=== PATIENT | male | born 1955 | race Caucasian/White ===

== ENCOUNTER 2019-05-12 15:12 | Emergency (ER) | payer MEDICARE, OTHER, SELFPAY ==
[2019-05-12 15:14] VITALS: BP 114/74; PULSE 124; RESP 18; TEMP 36.2; O2SAT 96; BMI 21.9
--- NOTE | 2019-05-12 15:52 | ED.DCSUM_ITS ---
History of Present Illness Chief Complaint: Rash Informant: Patient, Significant Other Location: Left Eye Onset: Yesterday Context: Sudden Onset Timing: Continuous Current Severity: Moderate Maximum Severity: Severe Worsened by: Light and rubbing Relieved by: Nothing Associated Symptoms - Eyes: Foreign body sensation, Photophobia, Redness, - - All other associated symptoms were negative. Unable to\because T-sheet has not been completed. History of injury: Uncertain, Welding injury, - - And grinding yesterday Visual correction: None Narrative: Patient presents with rash which he and Dr. Stringer believe is secondary to chemotherapy. He also complains of eye pain with photophobia redness. Pain started after he was welding and grinding. There is no history of metal pounding on metal. He denies double vision, loss of vision. Prior similar symptoms: No Recent Illness/Hospitalization: No Past Medical History - Allergies and Home Meds Allergies/Adverse Reactions: Allergies Penicillins Allergy (Verified 05/12/19 15:16) Hives Primary Care Physician: Care Physician,No Primary [NON-STAFF] - Lives: Spouse/ Significant Other Smoking Status: Former smoker Alcohol: None Drugs: None Review of Systems General: Denies: Chills, Fever Eyes: Reports: - - Photophobia. Denies: Visual changes - bilaterally, Blurred Vision - bilaterally, Diplopia ENT: Denies: Bilateral ear pain, Rhinorrhea, Sore throat Gastrointestinal: Reports: Nausea, Vomiting Genitourinary: Denies: Dysuria, Hematuria, Frequency Musculoskeletal: Denies: Myalgias, Arthralgias, Back pain, Swelling, Extremity Pain Skin: Reports: Rash. Denies: Abscess, Wounds Hematologic: Reports: Easy bruising. Denies: Easy bleeding Allergy: Denies: Uticaria, Swelling of the mouth, Swelling of the tongue Physical Exam Eyelid: Normal inspection, Right eyelid everted, Left eyelid everted, No foreign body, - - All other findings are negative. Right Conjunctiva/Sclera: Normal inspection, No foreign body, No erythema Left Conjunctiva/Sclera: - - Metallic foreign body with rust ring noted using ophthalmoscope at 7:00 3 to 4 mm from the limbal border. 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 Right Cornea: Normal inspection, No foreign body, No abrasion Left Cornea: Foreign body Extraocular Motion: Normal exam, No pain, No palsy, No nystagmus Pupils: Normal accomodation, PERRL Right pupil size in mm: 3 Left pupil size in mm: 3 Anterior chamber: Normal exam, Deep and quiet Vital Signs/Narrative: Vital Signs Temp Pulse Resp BP Pulse Ox 05/12/19 15:14 97.1 F L 124 H 18 114/74 96 Inital Vital Signs reviewed: Yes General: Well nourished, Well developed Head: Normocephalic, Atraumatic ENT: Moist mucous membranes, No rhinorrhea Neck: Supple, Nontender Cardiovascular: Regular rate, Regular rhythm Respiratory: No distress Skin: Normal color, Rash - Erythematous slightly raised nonblanching rash noted to torso, upper extremities. There is bruising noted. There is also dry skin noted. There is no cervical, supraclavicular lymphadenopathy. Neurological: Alert, Oriented x3, Cranial nerves II-XII grossly intact, Normal Strength, Normal Sensation Psychological: Normal affect Diagnostic/Tx/Re-eval - Treatment and Re-Evaluation Foreign body removal: Eye dione Residual rust ring: No Removed with eye dione: Yes Tetracaine: left eye Antibiotic: left eye - Medical Decision Making Patient has metallic foreign body with rust ring. Slit lamp was nonfunctional. The foreign body was removed with bur without use of slit-lamp. There is a larger defect in his desirable. He was treated with ophthalmic antibiotics. Since pharmacies are closed he received a dose here in vial was dispensed. Regarding rash contacted Dr. Dk Stringer his oncologist. This is a photosensitivity reaction to the chemotherapy is on. He was instructed to apply steroid cream to the rash and apply sunscreen 30 or higher. ED Disposition - Plan for ED Patient: Disposition: Home or Assisted Living Diagnosis: Acute foreign body of left cornea, Photosensitivity dermatitis Instructions: Phytophotodermatitis, CORNEAL FOREIGN BODY, Removed Referrals: Care Physician,No Primary [NON-STAFF] - Additional Instructions: Instill 1 drop of antibiotic IM medication every 2-4 hours while awake for the next 3 to 5 days. Recommend seeing your supply and distribution manager in 1 to 2 days.
[2019-05-12] MEDS: Tetracaine 0.5% Ophthalmic Bottle 1 DRP LEFT EYE (16:36)
[2019-05-12] MEDS: Fluorescein 1 MG STRIP 1 STRIP EACH EYE (17:10)
[2019-05-12] MEDS: Ciprofloxacin 0.3% 2.5ml Bottle 1 DRP LEFT EYE (18:06)
[2019-05-12 18:07] VITALS: RESP 16
== END 2019-05-12 18:08 | disposition home or self-care (01) ==
PROVIDERS: Emergency Provider Emergency Medicine
DX: T15.02XA Foreign body in cornea, left eye, initial encounter (principal); L30.9 Dermatitis, unspecified; Z87.891 Personal history of nicotine dependence
CPT/HCPCS: 65220; 10120; 99283